=== PATIENT | male | born 1995 ===

== ENCOUNTER 2017-01-07 09:11 | Emergency (ER) | payer OTHER ==
[2017-01-07 09:40] VITALS: BP 142/78; PULSE 61; RESP 20; TEMP 97.8; O2SAT 100
[2017-01-07] MEDS ORDERED: Oxycodone/Acetaminophen 5/325 mg Tab PO STA (09:55)
[2017-01-07] MEDS ORDERED: Oxycodone/Acetaminophen 5/325 mg Tab ONE (10:10)
--- NOTE | 2017-01-07 10:13 | C.PDOC ---
History Of Present Illness 21 y/o male c/o pain to the right knee that began today. 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 Patient is ambulating with a steady gait. Denies trauma or nausea. No weakness or numbness. Time Seen by Provider: 01/07/17 09:46 Chief Complaint (Nursing): Lower Extremity Problem/Injury History Per: Patient History/Exam Limitations: no limitations Onset/Duration Of Symptoms: Hrs Current Symptoms Are (Timing): Still Present Severity: Mild Recent travel outside of the [place]: No Additional History Per: Patient Past Medical History Reviewed: Historical Data, Nursing Documentation, Vital Signs Vital Signs: Last Vital Signs Temp 97.8 F 01/07/17 09:38 Pulse 61 01/07/17 09:38 Resp 20 01/07/17 09:38 BP 142/78 01/07/17 09:38 Pulse Ox 100 01/07/17 11:01 - Reactivity Procedures TETANUS TOXOID ADMINIST (12/05/12) Family History: States: Unknown Family Hx - Social History Hx Tobacco Use: No Hx Alcohol Use: Yes Hx Substance Use: No - Immunization History Hx Tetanus Toxoid Vaccination: Yes Hx Influenza Vaccination: No Hx Pneumococcal Vaccination: No Review Of Systems Constitutional: Negative for: Other (Trauma) Musculoskeletal: Positive for: Leg Pain (Right knee) Neurological: Negative for: Weakness, Numbness Physical Exam - Physical Exam Appears: Non-toxic, No Acute Distress Skin: Warm, Dry Head: Atraumatic, Normacephalic Extremity: Normal ROM, No Tenderness (No bony hip tenderness, no knee tenderness ), No Pedal Edema, No Calf Tenderness, Capillary Refill (<2secs), No Deformity, No Swelling Extremity: Bilateral: Normal Color And Temperature, Normal ROM, Pelvis-Stable Pulses: Left Dorsalis Pedis: Normal (R popliteal WNL), Right Dorsalis Pedis: Normal Neurological/Psych: Oriented x3, Normal Motor, Normal Sensation Gait: Steady ED Course And Treatment O2 Sat by Pulse Oximetry: 100 (RA) Pulse Ox Interpretation: Normal Medical Decision Making Medical Decision Making: Impression: * Pain to the right knee that began today. Patient neurovascularly intact Plans: * XRAY right knee * Percocet * Knee immobilzer Patient is in no acute distress at this time and is ambulating around without issue. Patient was placed in an immobilizer by the finishing technician and was instructed to follow up with PMD for further evaluation. Disposition - Disposition Disposition: HOME/ ROUTINE Disposition Time: 10:13 Condition: GOOD Additional Instructions: Follow-up with PMD for further evaluation within 2 days. Keep knee immobilizer in place. Motrin for pain. You will likely need outpatient MRI to assess for ligamentous injury. Return to ED if condition worsens. Instructions: Knee Pain (ED) Forms: [facility] ([place]an), Work Excuse - Clinical Impression Clinical Impression: Knee pain - Scribe Statement The provider has reviewed the documentation as recorded by the Scribe Tracie huang All medical record entries made by the Scribe were at my direction and personally dictated by me. I have reviewed the chart and agree that the record accurately reflects my personal performance of the history, physical exam, medical decision making, and the department course for this patient. I have also personally directed, reviewed, and agree with the discharge instructions and disposition.
--- NOTE | 2017-01-07 11:02 | RAD ---
PROCEDURE: Right Knee Radiographs. HISTORY: R knee pain COMPARISON: None. FINDINGS: BONES: Normal. No fracture. JOINTS: Normal. No osteoarthritis. JOINT EFFUSION: None. OTHER FINDINGS: None. IMPRESSION: Normal radiographs of the right knee.
== END 2017-01-07 10:33 | disposition home or self-care (01) ==
LOC: C.ER 09:11
DX: M25.561 Pain in right knee (principal)

== ENCOUNTER 2018-09-08 11:13 | Emergency (ER) | payer SELFPAY ==
[2018-09-08 11:18] VITALS: BMI 24.0
[2018-09-08 11:27] VITALS: BP 153/91; PULSE 73; TEMP 98.6; O2SAT 100
--- NOTE | 2018-09-08 11:44 | C.PDOC ---
History Of Present Illness 23 y/o male, with no known medical history, comes in complaining of 4 day history of left ear fullness which he noticed while showering. He denies ear pain. Reports some nasal drainage and cough. Also denies fever, chills, headache, hearing changes, sore throat, chest pain, SOB, or abdominal pain. Time Seen by Provider: 09/08/18 11:22 Chief Complaint (Nursing): ENT Problem History Per: Patient History/Exam Limitations: None Onset/Duration Of Symptoms: Hrs Current Symptoms Are (Timing): Still Present Past Medical History Reviewed: Historical Data, Nursing Documentation, Vital Signs Vital Signs: Last Vital Signs Temp 98.6 F 09/08/18 11:18 Pulse 73 09/08/18 11:18 Resp 16 09/08/18 11:18 BP 153/91 H 09/08/18 11:18 Pulse Ox 100 09/08/18 11:18 Primary Care Provider: FAMILY PROVIDER,NO - [facility] Procedures TETANUS TOXOID ADMINIST (12/05/12) Family History: States: No Known Family Hx - Social History Hx Tobacco Use: No Hx Alcohol Use: Yes Hx Substance Use: No - Immunization History Hx Tetanus Toxoid Vaccination: Yes Hx Influenza Vaccination: No Hx Pneumococcal Vaccination: No Review Of Systems Except As Marked, All Systems Reviewed And Found Negative. Constitutional: Negative for: Fever, Chills ENT: Positive for: Nose Discharge, Other (Ear fullness). Negative for: Ear Pain, Throat Pain (sore throat) Cardiovascular: Negative for: Chest Pain Respiratory: Positive for: Cough. Negative for: Shortness of Breath Gastrointestinal: Negative for: Abdominal Pain Neurological: Negative for: Headache Physical Exam - Physical Exam Appears: Non-toxic, No Acute Distress Skin: Warm, Dry Head: Normacephalic Eye(s): bilateral: Normal Inspection Ear(s): Left: TM Erythema (with several small vesicles), Right: Normal Oral Mucosa: Moist Throat: Normal, No Erythema, No Exudate Neck: Supple Cardiovascular: Rhythm Regular Respiratory: Normal Breath Sounds, No Rales, No Rhonchi, No Wheezing Extremity: Bilateral: Normal ROM Neurological/Psych: Oriented x3, Normal Speech Gait: Steady ED Course And Treatment O2 Sat by Pulse Oximetry: 100 (RA) Pulse Ox Interpretation: Normal Progress Note: Patient will be discharged home with zithromax, flonase, and ibuprofen. Medical Decision Making Medical Decision Making: Afebrile with stable vitals. On exam, mild erythema and vesicles noted to left TM only with no extension to ear canal, consistent with bullous myringitis. Given z-pack and discussed return precautions Disposition - Disposition Disposition: HOME/ ROUTINE Disposition Time: 11:42 Condition: STABLE Prescriptions: Azithromycin [Zithromax] 250 mg PO ASDIR #6 tab Fluticasone Nasal [Flonase] 2 spr NS DAILY PRN #1 bottle PRN Reason: ear discomfort Ibuprofen [Motrin Tab] 600 mg PO Q8 #30 tab Instructions: Ear Infections (Otitis Media) (DC) Forms: [facility] ([place] Verdean) - POA Present On Arrival: None - Clinical Impression Clinical Impression: Bullous myringitis of left ear - PA / IRONING PLEATER / Resident Statement MD/DO has reviewed & agrees with the documentation as recorded. - Scribe Statement The provider has reviewed the documentation as recorded by the Scribe Shaila Lara All medical record entries made by the Scribe were at my direction and personally dictated by me. I have reviewed the chart and agree that the record accurately reflects my personal performance of the history, physical exam, medical decision making, and the department course for this patient. I have also personally directed, reviewed, and agree with the discharge instructions and disposition.
[2018-09-08 11:53] VITALS: RESP 18
== END 2018-09-08 11:53 | disposition home or self-care (01) ==
LOC: C.ER 11:13
DX: H73.012 Bullous myringitis, left ear (principal)